=== PATIENT | female | born 1955 | race African-American/Black ===

== ENCOUNTER 2018-08-24 16:54 | Inpatient (IN) ==
[2018-08-24 17:51] LABS: BASO# 0.05 X1000 (0.0-0.2); BASO% 0.6 % (0.0-0.8); EOS# 0.28 X1000 (0.0-0.7); EOS% 3.2 % (0.0-10.0); HEMATOCRIT 39.5 % (37.0-47.0); HEMOGLOBIN 12.8 g/dL (12.0-16.0); IMM GRAN# 0.01 X1000 (0.0-0.04); IMM GRAN% 0.1 % (0.0-0.5); LYMPH# 2.68 X1000 (1.2-3.4); LYMPH% 31.1 % (20.5-51.1); MCH 27.9 PG (27-31); MCHC 32.4 g/dL (33-37); MCV 86.2 FL (81-99); MONO# 0.58 X1000 (0.11-0.59); MONO% 6.7 % (1.7-9.3); MPV 12.2 FL (7.4-10.4); NEUT# 5.02 X1000 (1.4-6.5); NEUT% 58.3 % (42.2-75.2); PLT 316 X1000 (130-400); RBC 4.58 XMIL (4.2-5.4); RDW 14.1 % (11.5-14.5); WBC 8.62 X1000 (4.8-10.8)
[2018-08-24 18:11] LABS: INR 0.86; PROTIME 12.2 Seconds (11.0-16.0)
[2018-08-24 18:12] LABS: PTT 27.3 Seconds (22.3-41.8)
[2018-08-24 18:33] LABS: AGAP 12; ALBUMIN 4.6 g/dL (3.5-5.0); ALKALINE PHOSPHATASE 90 U/L (32-104); BUN 17 mg/dL (8-22); CALCIUM 9.8 mg/dL (8.8-10.2); CHLORIDE 104 mmol/L (98-107); CK PROFILE 159 U/L (24-173); COSMO 288; CREATININE 0.9 mg/dL (0.5-0.9); ESTIMATED GFR > 60; GLUCOSE 97 mg/dL (70-104); GOT 13 U/L (10-30); GPT 16 U/L (10-36); POTASSIUM 4.8 mmol/L (3.5-5.1); SODIUM 144 mmol/L (136-145); TCO2 28 mmol/L (25-35); TOTAL BILIRUBIN < 0.15 mg/dL (0.20-1.00); TOTAL PROTEIN 7.5 g/dL (6.3-8.3)
--- NOTE | 2018-08-24 19:03 | PROVIDER DOCUMENTATION ---
This chart was entered by Destiny Xiao Scribe, acting as scribe for Kamilla Baig MD. HPI-Syncope/Dizziness - General Source: patient - History of Present Illness-Syncope/Dizzy Recently Seen Here or By Another Healthcare Provider: No <Kamilla Baig - Last Filed: 08/24/18 19:02> <Wale Crane - Last Filed: 08/24/18 20:47> - General Chief Complaint: General Adult Stated Complaint: HYPERTENSION,SOB,(L)ARM NUMB Time Seen by Provider: 08/24/18 17:37 Allergies/Adverse Reactions: Patient Allergies Allergy/AdvReac Type Severity Reaction Status Date / Time codeine Allergy RASH Verified 08/24/18 17:10 Home Medications: Home Medication List Medication Instructions Recorded Confirmed Last Taken Type Aripiprazole [Abilify] 10 mg PO DAILY 11/23/15 11/18/17 Unknown History Fenofibrate Nanocrystallized 145 mg PO DAILY 09/24/16 11/18/17 Unknown History [Fenofibrate] Metformin HCl 500 mg PO DAILY 09/24/16 11/18/17 Unknown History Amlodipine Besylate 5 mg PO DAILY 11/18/17 11/18/17 Unknown History Amoxicillin/Potassium Clav 1 each PO TID 10 Days #21 tablet 11/18/17 Unknown Rx [Augmentin 500-125 Tablet] Atorvastatin Calcium 80 mg PO DAILY 11/18/17 11/18/17 Unknown History Losartan/Hydrochlorothiazide 1 tab PO DAILY 11/18/17 11/18/17 Unknown History [Losartan-Hctz 100-25 mg Tab] Meclizine HCl [Bonine] 25 mg PO TID 7 Days #21 tab.chew 11/18/17 Unknown Rx Ondansetron [Zofran Odt] 8 mg PO TID #30 tab.rapdis 11/18/17 Unknown Rx Sertraline HCl 100 mg PO DAILY 11/18/17 11/18/17 Unknown History Cetirizine [Zyrtec] 10 mg PO DAILY #20 tab 05/04/18 Unknown Rx D-Methorphan/P-Epd/Bpm [Bromfed Dm 5 ml PO Q4H PRN #120 ml 05/04/18 Unknown Rx Liquid] - History of Present Illness-Syncope/Dizzy Nature of Presenting Problem: 63 yof hx of htn , migraines and dm presents to ed with cc of left arm numbness mine captain that last 5 minutes. pt reports she went to see her pcp this am for Hy pertension and reports her bp was 188/88 this am. Reports no cp, n,v, diaphoresis. Reports sob mild. (JovanniKamilla Burton) Review of Systems - Adult - REVIEW OF SYSTEMS - ADULT Constitutional: reports: other (htn). denies: chills, fever, fatique Eyes: reports: no symptoms reported Ears, Nose, Mouth & Throat: denies: ear pain, sinus problem, throat pain Cardiovascular: denies: chest pain, irregular heart rate, syncope Respiratory: denies: cough, dyspnea on exertion Gastrointestinal: denies: abdominal pain, frequent heartburn, vomiting Genitourinary: denies: dysuria, discharge, frequency, flank pain, frequent UTI's, hematuria, hesitency, incontinence Musculoskeletal: denies: joint pain, joint swelling Integumentary: denies: itching, mole changes, rash Neurological: reports: headache/migraines, numbness. denies: ataxia, dizziness/vertigo, loss of balance, paresthesia, seizure, slurred speech, syncope, tremors Psychiatric: denies: anxiety, anti-depressant use, alcohol/drug dependence, emotional problems, insomnia, panic attacks, suicidal thoughts Endocrine: reports: no symptoms reported Hematologic/Lymphatic: reports: no symptoms reported Allergic/Immunologic: reports: no symptoms reported All Other Systems: Reviewed and Negative <Tomás Baigi Micheal - Last Filed: 08/24/18 19:02> Past History - Adult - PAST MEDICAL HISTORY-ADULT Review of Records: reports: Nursing Assessment Review, Medications Reviewed Major Childhood Illnesses: reports: denies history Cardiovascular: reports: HTN, hyperlipidemia, murmur Respiratory: reports: COPD Gastrointestinal: reports: denies history Obstetrical/Gynecological: reports: denies history Genitourinary: reports: denies history Musculoskeletal: reports: denies history Neurological: reports: denies history Psychiatric: reports: anxiety Endocrine/Immune: reports: denies history Other Conditions: reports: denies history - PRIOR SURGERIES/PROCEDURES Surgical/Procedure History: reports: hysterectomy, BTL - PRIOR HOSPITALIZATIONS Prior Hospitalizations: reports: none - IMMUNIZATION STATUS Childhood Immunizations: See Nurse Assessment Flu Vaccine: See Nurse Assessment - FAMILY HISTORY Family History: reviewed, not pertinent - SOCIAL HISTORY Smoking: cigarettes, less than 1 pack/day Provider spent 3-5 mins advising pt. on dangers of tobacco.: Discussed manners to quit use, and f/u contacts for add'l counseling. Substance Use: none/never <Kamilla Baig - Last Filed: 08/24/18 19:02> Physical Exam-General - PHYSICAL EXAM-ADULT Initial Vital Signs Reviewed: Yes (BP 141/92) - CONSTITUTIONAL General Appearance: appears well, alert, no apparent distress - EYES Eyes: PERRL/EOMI, pink conjunctivae - HEAD, EARS, NOSE, MOUTH & THROAT HENMT: moist mucous membranes, normal ENT inspection, TMs normal, pharynx normal - NECK Neck: non-tender, full range of motion, supple, normal inspection - RESPIRATORY Respiratory: chest non-tender, lungs clear, normal breath sounds, no pleuratic chest pain, no respiratory distress, no accessory muscle use - CARDIOVASCULAR Cardiovascular: regular rate, rhythm, no edema, no gallop, no JVD, no murmur - GASTROINTESTINAL (ABDOMEN) Abdominal Exam: non tender, soft, no organomegaly, no pulsatile mass - MUSCULOSKELETAL Back Exam: normal inspection, no CVA tenderness, no vertebral tenderness Extremity: normal range of motion, non-tender, normal gait, normal inspection - SKIN Integumentary: normal color, normal turgor, warm/dry - NEUROLOGIC Neurologic: delinquency counselor II-XII nml as tested, grossly normal, no motor/sensory deficits - PSYCHIATRIC Psych/Mental Status: normal mood/affect, normal thought content, normal thought process, oriented x 3 <Kamilla Baig - Last Filed: 08/24/18 19:02> Progress - PLAN OF CARE/RESULTS Result Diagrams: 08/24/18 17:37 08/24/18 17:37 - EKG 1 Time of EKG reading by physician:: 17:32 EKG Read and Signed by:: Kamilla Baig EKG Interpretation (*Must complete 3 of following elements*): Abnormal (poss anterior infarct) Rate: 96 Rhythm: nsr [place]: normal QRS: normal MS Interval: normal - CHANGE OF SHIFT REPORT (ED Provider) 1 Report Given and Care Transferred to:: [place] Time of Transfer: 19:00 Items Pending: CT/MRI Results <Kamilla Baig - Last Filed: 08/24/18 19:02> - PLAN OF CARE/RESULTS Result Diagrams: 08/24/18 17:37 08/24/18 17:37 - CT/MRI 1 CT Study: Head Impression: Normal ( EXAM: CT HEAD W/O CONTRAST INDICATION: elevated blood pressure, left arm numbness TECHNIQUE: This exam was performed using automated exposure control, adjustment of mA or kV according to patient size, and/or use of iterative reconstruction technique. COMPARISON: None. FINDINGS: There is no definite acute infarct given the limited sensitivity of CT versus MRI. There is no discrete intracranial mass, mass effect, or intracranial hemorrhage. There is a right maxillary sinus mucus retention cyst. Surrounding soft tissues and bony structures are essentially unremarkable, otherwise. IMPRESSION: No evidence of acute intracranial pathology by CT. Electronically signed by Mars Roberts 08/24/2018 7:38 PM 08/24/181937 Interpreting Physician: Mars Roberts MD Dictated Date/Time: 08/24/181934 cc: Kamilla Baig MD; Placido Coughlin MD) - CONSULTS/PCP/HOSPITALIST Notification #1 *Consult/PCP/Hospitalist*: Dr Mora Time Discussed: 20:45 Consult Disposition: Admit <Wale Crane - Last Filed: 08/24/18 20:47> - PLAN OF CARE/RESULTS Progress/Plan/Lab Results: Vital Signs - 8 hr 08/24/18 17:05 08/24/18 17:42 08/24/18 20:13 Temperature 99.3 F Pulse Rate 95 H 101 H 76 Respiratory Rate 18 18 20 Blood Pressure 183/133 141/92 174/97 O2 Sat by Pulse Oximetry 100 96 98 Laboratory Results - last 24 hr 08/24/18 08/24/18 08/24/18 17:37 17:37 17:37 WBC 8.62 RBC 4.58 Hgb 12.8 Hct 39.5 MCV 86.2 MCH 27.9 MCHC 32.4 L RDW Std Deviation 14.1 Plt Count 316 MPV 12.2 H Immature Gran % (Auto) 0.1 Neut % (Auto) 58.3 Lymph % (Auto) 31.1 [place] % (Auto) 6.7 Eos % (Auto) 3.2 Baso % (Auto) 0.6 Immature Gran # (Auto) 0.01 Neut # (Auto) 5.02 Lymph # (Auto) 2.68 [place] # (Auto) 0.58 Eos # (Auto) 0.28 Baso # (Auto) 0.05 PT INR PTT (Actin FS) Sodium 144 Potassium 4.8 Chloride 104 Carbon Dioxide 28 Anion Gap 12 BUN 17 Creatinine 0.9 Estimated GFR/1.73 m2 > 60 BUN/Creatinine Ratio 19 Glucose 97 Calculated Osmolality 288 Calcium 9.8 Total Bilirubin < 0.15 L AST 13 ALT 16 Alkaline Phosphatase 90 Creatine Kinase 159 Troponin T Apq-V-Rgijcsyncfe Pept 8 Total Protein 7.5 Albumin 4.6 Globulin 3.0 Albumin/Globulin Ratio 2.0 08/24/18 08/24/18 17:37 17:37 WBC RBC Hgb Hct MCV MCH MCHC RDW Std Deviation Plt Count MPV Immature Gran % (Auto) Neut % (Auto) Lymph % (Auto) [place] % (Auto) Eos % (Auto) Baso % (Auto) Immature Gran # (Auto) Neut # (Auto) Lymph # (Auto) [place] # (Auto) Eos # (Auto) Baso # (Auto) PT 12.2 INR 0.86 PTT (Actin FS) 27.3 Sodium Potassium Chloride Carbon Dioxide Anion Gap BUN Creatinine Estimated GFR/1.73 m2 BUN/Creatinine Ratio Glucose Calculated Osmolality Calcium Total Bilirubin AST ALT Alkaline Phosphatase Creatine Kinase Troponin T < 0.010 Mbq-H-Dbprmlwubgb Pept Total Protein Albumin Globulin Albumin/Globulin Ratio Orders Category Date Time Status Cardiac Monitoring DIRECTED Care 08/24/18 17:37 Active Saline Loc NOW Care 08/24/18 17:37 Active CHEST-2 VIEWS [RAD] Stat Exams 08/24/18 17:[address] HEAD W/O CONTRAST [CT] Stat Exams 08/24/18 17:45 Completed CBC WITH ELECTRONIC DIFF [HEME] Stat Lab 08/24/18 17:37 Completed CK PROFILE [SP CHEM] Stat Lab 08/24/18 17:37 Completed COMPREHENSIVE METABOLIC PANEL [CHEM] Stat Lab 08/24/18 17:37 Completed PRO B-NATRIURETIC PEPTIDE Stat Lab 08/24/18 17:37 Completed PROTIME WITH INR [COAG] Stat Lab 08/24/18 17:37 Completed PTT [COAG] Stat Lab 08/24/18 17:37 Completed TROPONIN T Stat Lab 08/24/18 17:37 Completed Labetalol Med 08/24/18 17:42 Discontinued 10 mg IV NOW ONE Labetalol Med 08/24/18 20:16 Discontinued 20 mg .ROUTE .STK-MED ONE CP/SOB/Palp >45 yrs of Age Stat Oth 08/24/18 17:34 Ordered EKG [EKG] Stat Ther 08/24/18 17:37 Ordered At recheck pt noted that she woke up with severe headache and lt arm and leg numbness this am. Pt adds that her leg is better but still has some lt arm numbness and headache. (Wale Crane) Departure <Kamilla Baig - Last Filed: 08/24/18 19:02> - Departure Date of Disposition Decision: 08/24/18 Time of Disposition Decision: 20:46 Certified Medical Emergency: Emergent - Critical Care Note This patient required my direct & personal management of CC.: No <Wale Crane - Last Filed: 08/24/18 20:47> - Departure DIAGNOSIS: TIA (transient ischemic attack) Disposition: ADMITTED INPATIENT 09 Condition: Fair Referrals and Follow-Ups: Placido Coughlin MD [Primary Care Provider] - Attestation - Physician/ LILIBETH Attestation Patient care was provided by Advanced Practice Provider:: No The physician spent face to face time with patient:: Yes Advanced Practice Provider documentation review:: Supervising physician onsite and consulted in the evaluation and care of this patient. The physician did have a face to face encounter with the patient. <Kamilla Baig - Last Filed: 08/24/18 19:02> This chart was documented by the indicated scribe, (Destiny Xiao Scribe) and accurately reflects the services I performed and decisions made by me, Kamilla Baig MD, as attested by the provider's signature.
--- NOTE | 2018-08-24 19:06 | Diag Imaging Result Doc PS360 ---
EXAM: CHEST-2 VIEWS INDICATION: shortness of breath TECHNIQUE: 2 views COMPARISON: 02/17/2018 FINDINGS: The lungs are grossly clear. There is no discrete pleural fluid collection or pneumothorax. The cardiomediastinal silhouette and central vasculature are grossly unremarkable. IMPRESSION: No evidence of acute pathology by plain radiograph. Electronically signed by Mars Roberts 08/24/2018 7:04 PM
--- NOTE | 2018-08-24 19:40 | Diag Imaging Result Doc PS360 ---
EXAM: CT HEAD W/O CONTRAST INDICATION: elevated blood pressure, left arm numbness TECHNIQUE: This exam was performed using automated exposure control, adjustment of mA or kV according to patient size, and/or use of iterative reconstruction technique. COMPARISON: None. FINDINGS: There is no definite acute infarct given the limited sensitivity of CT versus MRI. There is no discrete intracranial mass, mass effect, or intracranial hemorrhage. There is a right maxillary sinus mucus retention cyst. Surrounding soft tissues and bony structures are essentially unremarkable, otherwise. IMPRESSION: No evidence of acute intracranial pathology by CT. Electronically signed by Mars Roberts 08/24/2018 7:38 PM
[2018-08-24] MEDS ORDERED: LABETALOL ONE (20:16)
[2018-08-24] MEDS: LABETALOL IV ONE (20:25)
[2018-08-24] MEDS ORDERED: ASPIRIN PO ONE (20:50)
[2018-08-25] MEDS: ROBAXIN PO PRN ×2 (09:23→21:05)
[2018-08-25] MEDS: ASPIRIN PO SCH (09:23)
[2018-08-25] MEDS ORDERED: HYDROCHLOROTHIAZIDE PO SCH (10:15)
[2018-08-25] MEDS ORDERED: LOSARTAN PO SCH (10:15)
--- NOTE | 2018-08-25 13:33 | Extremity Venous Study ---
EXAM: Carotid Ultrasound HISTORY: left arm numbness TECHNIQUE: Carotid Doppler ultrasound COMPARISON: None. FINDINGS: Right: Normal flow in the common carotid artery. No occlusion or stenosis. The peak systolic velocity in the internal carotid artery is only 83 cm/s. No plaque. The ICA/CCA ratio is 1.29. Antegrade flow in the vertebral artery. Left: Normal flow in the left common carotid artery. No occlusion or stenosis. The peak systolic velocity in the internal carotid artery 65 cm/s. No plaque. The ICA/CCA ratio 0.76. There is antegrade flow in the vertebral artery. IMPRESSION: No stenosis within either common carotid artery or within either internal carotid artery. Electronically signed by Brayan Nayak 08/25/2018 1:31 PM
[2018-08-25] MEDS: ABILIFY PO SCH (13:43)
[2018-08-25] MEDS: HYDROCHLOROTHIAZIDE PO SCH (13:43)
[2018-08-25] MEDS: COZAAR PO SCH (13:43)
--- NOTE | 2018-08-25 15:12 | EKG Report ---
Test Performed on : 08/24/2018 5:32:50 PM Test Reason : shortness of breath Blood Pressure : / mmHG Vent. Rate : 096 BPM Atrial Rate : 096 BPM P-R Int : 126 ms QRS Dur : 070 ms QT Int : 340 ms P-R-T Axes : 052 025 033 degrees QTc Int : 429 ms Normal sinus rhythm. Possible Anterior infarct , age undetermined Abnormal ECG When compared with ECG of 18-NOV-2017 19:07, Criteria for Inferior infarct are no longer present Unconfirmed Result
[2018-08-25] MEDS ORDERED: ZOFRAN ODT PO ONE (17:02)
--- NOTE | 2018-08-25 18:48 | HISTORY AND PHYSICAL ---
CHIEF COMPLAINT: Left arm numbness and hypertension. HISTORY OF PRESENT ILLNESS: This is a 63-year-old female with a history of diabetes, migraines, and hypertension. She presented to the emergency room with an onset of left arm numbness. It lasted about 5 minutes. She states prior to this, she had been evaluated by her primary care physician and she was hypertensive with a pressure of 188/88. She denied any chest pain, palpitations, syncope, dizziness, or any other accompanying symptoms. PAST MEDICAL HISTORY: 1. Noninsulin-dependent diabetes mellitus. 2. Hypertension. 3. Vertigo. PAST SURGICAL HISTORY: 1. Hysterectomy. 2. Tubal ligation. SOCIAL HISTORY: She smokes half a pack a day. Denies alcohol or illicit drug use. ALLERGIES: Codeine, which causes a rash. HOME MEDICATIONS: A list will be obtained by the nursing staff and will review and restart as appropriate. REVIEW OF SYSTEMS: Discussed with patient with pertinent positives as stated in the HPI. She denied any syncope, dizziness, chest pain, palpitations, any cough, fever, chills, any night sweats, recent weight loss or weight gain, any nausea, vomiting, diarrhea, constipation, black or bloody vomitus or stools, hematuria, dysuria, frequency, or urgency. PHYSICAL EXAMINATION: GENERAL: This is a 63-year-old female who is sitting up in the bed in no distress. VITAL SIGNS: Blood pressure is 128/73 with a heart rate of 75, respirations are 18, temperature is 98.2 degrees, with room air saturations 97%. EYES: Pupils are equal, round, react to light. EOMs are intact. Sclerae are anicteric. HEENT: Head is normocephalic, atraumatic. Mucous membranes are moist. NECK: Supple with trachea midline. She has no JVD. CARDIOVASCULAR: Regular rate and rhythm. S1 and S2 appreciated. She has no lower extremity edema. Calves are nontender bilateral with peripheral pulses palpable x4 extremities. PULMONARY: Breath sounds are clear with no increased work of breathing noted. GASTROINTESTINAL: Abdomen is soft, nontender, nondistended, with bowel sounds in all 4 quadrants. GENITOURINARY: She has no costovertebral angle tenderness or suprapubic tenderness. NEUROLOGIC: She is alert and oriented x3 with cranial nerves 2 through 12 grossly intact. Muscle strength is 4/4 to all four extremities. Grocery Store Manager are equal. She has no plantar drift. Her gait is steady. Her speech is clear. LABS: WBC is 8.6, with a hemoglobin 12.8, hematocrit 39.5, and platelets 316,000. Sodium 144, potassium 4.8, BUN 17, creatinine 0.9, with a glucose of 115. Troponin is negative. CT of the head revealed no evidence of acute intracranial pathology. ASSESSMENT AND PLAN: 1. Transient ischemic attack. 2. Noninsulin-dependent diabetes mellitus. 3. Hypertension. 4. History of vertigo. PLAN: 1. The patient has been admitted to the medical-surgical floor at [facility] on telemetry, which we will continue for close monitoring. 2. She will be placed on a diabetic diet with patterned blood glucose. 3. We will identify her home medications and continue these as appropriate. 4. We will repeat a CBC and CMP in the morning. 5. We will monitor neurologic checks. 6. Further treatments pending hospital course. Dictated by OLAMIDE Loomis for Owen Mora MD This chart was documented by, OLAMIDE Loomis and accurately reflects the services performed, treatment plan and medical decisions as attested by the providers signature Owen Mora MD. cc: OLAMIDE Loomis MD
[2018-08-25] MEDS: HUMALOG (PARKWAY) SUBQ SCH (20:33)
[2018-08-25] MEDS ORDERED: LIPITOR PO SCH (21:00)
--- NOTE | 2018-08-25 23:11 | HISTORY AND PHYSICAL ---
ADDENDUM: Patient seen and examined by myself. Full note dictated and discussed with nurse practitioner. Patient presented to the hospital with increased blood pressure, shortness of breath, and left arm numbness. Blood pressures were markedly elevated in the ER. Thankfully, they have improved. We will continue her in the hospital. Continue to follow her blood pressures. Her left arm numbness and tingling has improved. Hopefully, this will continue with better blood pressure control and she can be discharged home. cc: Owen Mora MD
[2018-08-26] MEDS: ROBAXIN PO PRN (04:36)
[2018-08-26] MEDS: HUMALOG (PARKWAY) SUBQ SCH ×2 (06:15→12:18)
[2018-08-26 06:55] LABS: HEMATOCRIT 38.2 % (37.0-47.0); HEMOGLOBIN 12.1 g/dL (12.0-16.0); MCH 27.7 PG (27-31); MCHC 31.7 g/dL (33-37); MCV 87.4 FL (81-99); MPV 12.1 FL (7.4-10.4); RBC 4.37 XMIL (4.2-5.4); WBC 5.78 X1000 (4.8-10.8)
[2018-08-26 07:17] LABS: AGAP 11; ALBUMIN 4.1 g/dL (3.5-5.0); ALKALINE PHOSPHATASE 89 U/L (32-104); BUN 21 mg/dL (8-22); CALCIUM 9.1 mg/dL (8.8-10.2); CHLORIDE 102 mmol/L (98-107); COSMO 287; CREATININE 0.8 mg/dL (0.5-0.9); ESTIMATED GFR > 60; GLUCOSE 116 mg/dL (70-104); GOT 12 U/L (10-30); GPT 15 U/L (10-36); SODIUM 142 mmol/L (136-145); TCO2 29 mmol/L (25-35); TOTAL PROTEIN 7.5 g/dL (6.3-8.3)
[2018-08-26] MEDS ORDERED: GLUCOPHAGE PO SCH (08:00)
[2018-08-26] MEDS: HYDROCHLOROTHIAZIDE PO SCH (08:19)
[2018-08-26] MEDS: ASPIRIN PO SCH (08:19)
[2018-08-26] MEDS: ABILIFY PO SCH (08:19)
[2018-08-26] MEDS: COZAAR PO SCH (08:20)
[2018-08-26] MEDS ORDERED: ZOLOFT PO SCH (09:00)
[2018-08-26] MEDS ORDERED: LACTULOSE PO SCH (09:00)
[2018-08-26] MEDS ORDERED: NORVASC PO SCH (09:00)
[2018-08-26] MEDS ORDERED: TRICOR PO SCH (09:00)
[2018-08-26 12:26] VITALS: BP 135/75
--- NOTE | 2018-08-26 14:27 | DISCHARGE SUMMARY ---
ADMISSION DATE: 08/24/2018 DISCHARGE DATE: 08/26/2018 DISCHARGE DIAGNOSES: 1. Transient ischemic attack. 2. Euh-oqefhwq-vwzolxeuu diabetes mellitus. 3. Hypertension. 4. History of vertigo. 5. Left arm numbness resolved. DIAGNOSTICS: 1. CT of the head revealed no evidence of acute intracranial pathology. There is no discrete intracranial mass, mass effect, or intracranial hemorrhage. There is a right maxillary sinus mucous retention cyst. 2. Bilateral carotid Doppler reveals no stenosis within either common carotid artery or within either internal carotid artery. 3. Chest x-ray revealed no evidence of acute pathology. HOSPITAL COURSE: Ms. Payne presented to the emergency room after having an onset of left arm numbness. She also had markedly elevated blood pressures being in the 180s over 130s. She received labetalol in the emergency room, and her home medications were restarted, and since blood pressures have been in the 120s to 150s over 70s to 80s. She denies any further numbness, any weakness, headaches, chest pain, or syncope. DISCHARGE EXAMINATION: Discharge vital signs, blood pressure is 135/75 with a heart rate of 90, respirations 18, and temperature is 98.2 degrees oral with room air sats 99%. Eyes: Pupils equal, round, and react to light. EOMs are intact. Sclerae are anicteric. HEENT: Head is normocephalic, atraumatic. Mucous membranes are moist. Neck is supple with trachea midline. Cardiovascular with regular rate and rhythm. S1 and S2 are appreciated. She has no lower extremity edema with peripheral pulses palpable x4 extremities. Her calves are nontender to palpation. Pulmonary: Breath sounds are clear with no increased work of breathing noted. Chest rises and falls symmetric with respiration. Chest wall is nontender to palpation. Gastrointestinal: Abdomen is soft, nontender, and nondistended with bowel sounds in all 4 quadrants. Neurologic: She is alert and oriented x3 with cranial nerves 2-12 grossly intact. DISCHARGE MEDICATIONS: 1. Enteric-coated aspirin 81 mg p.o. daily. 2. Zoloft 100 mg p.o. daily. 3. Metformin 500 mg p.o. b.i.d. 4. Losartan hydrochlorothiazide 100/25 1 p.o. daily. 5. Fenofibrate 145 mg p.o. daily. 6. Lipitor 80 mg p.o. daily. 7. Abilify 10 mg p.o. daily. 8. Norvasc 5 mg p.o. daily. The patient was instructed not to take NSAIDs (Aleve, Motrin, ibuprofen, Naprosyn, etc.) while taking aspirin. FOLLOW UP: She is to follow up with her primary care physician, Dr. Placido Coughlin within the next week. She has been instructed to call to be seen sooner or return to the emergency room for any syncope, dizziness, chest pain, palpitations, any weakness to her extremities, change in vision, any recurring numbness, tingling or for any questions or concerns that she may have. She is being discharged home in stable condition with family members. TIME SPENT: This is a greater than 30 minute discharge. Dictated by OLAMIDE Loomis for Owen Mora MD This chart was documented by, OLAMIDE Loomis and accurately reflects the services performed, treatment plan and medical decisions as attested by the providers signature Owen Mora MD. cc: OLAMIDE Loomis MD [facility]
--- NOTE | 2018-08-27 01:57 | DISCHARGE SUMMARY ---
ADMISSION DATE: 08/24/2018 DISCHARGE DATE: 08/26/2018 ADDENDUM: Patient seen and examined by myself. Full note dictated and discussed with nurse practitioner. On discharge, patient is awake, alert, currently in no distress. Overall feeling better. Her neurologic symptoms have resolved and therefore she will be discharged home. cc: Owen Mora MD
== END 2018-08-26 14:05 | disposition home or self-care (01) | DRG 69 ==
LOC: P.ED 16:54 → P.MEDSURG 21:29
PROVIDERS: ATTEND Family Medicine
CPT/HCPCS: 70450; 71020; 71046; 80053; 82550; 82948; 83880; 84484; 85025; 85027; 85610; 85730; 93005; 93880; 96374; 99285; A9270; XXXXX